=== PATIENT | male | born 1935 | race Caucasian/White ===

== ENCOUNTER 2020-04-04 19:52 | Inpatient (IN) | payer MEDICARE ==
[~2020-04-04 19:52] MED LIST: Iopamidol-370 76% 500 ML 1 ML ONE
--- NOTE | 2020-04-04 20:18 | CT ---
Head CT without contrast: 04/04/2020 COMPARISON: None HISTORY: Altered mental status, bradycardia, left-sided hemiplegia TECHNIQUE: Axial CT imaging at 2.5 mm intervals from vertex through skull base without contrast. Raza nal and sagittal reformatted imaging obtained. FINDINGS: There is atherosclerotic calcification involving the distal vertebral arteries and the cave rnous carotid arteries. There is hypodensity with loss of porter-white differentiation involving the insular cortex on the righ t as well as the lateral and anterior aspect of the right frontal lobe from the anterior cranial fossa through the vertex suggesting acute extensive right MCA infarction. Foci of loss of porter-white differentiation suspected within the temporal lobe on the right as well. No associated intracranial hemorrhage. There is a mild degree of midline shift from right to left at the level of the septum pellucidum susp ected, measuring in the 1-2 mm range. The visualized paranasal sinuses and mastoid air cells are well-aerated. There is no displaced calvar ial fracture. IMPRESSION: Findings suggesting extensive MCA infarction on the right. Recommend follow-up MRI. No ev idence for intracranial hemorrhage. Results called to Dr. Martinez 8:15 PM 04/04/2020
--- NOTE | 2020-04-04 20:56 | RAD ---
Portable frontal chest radiograph: 04/04/2020 COMPARISON: 08/10/2019 HISTORY: Altered mental status FINDINGS: There is atherosclerotic calcification of the aortic arch. No pneumothorax or pleural fluid is seen. There is no focal consolidation or alveolar edema. IMPRESSION: No acute findings.
[2020-04-04 21:19] LABS: INR-International Normal Ratio 1.1; PTT 27.1 sec (22.9-36.1); Prothrombin Time 14.2 sec (12.0-14.7)
[2020-04-04 21:36] LABS: #Lymphocytes 0.8 thou/uL (1.20-3.40); #Monocytes 0.6 thou/uL (0.11-0.59); #Neutrophils 5.9 thou/uL (1.40-6.50); %Basophils 0.1 % (0.0-1.0); %Eosinophils 0.3 % (0.0-10.0); %Lymphocytes 10.4 % (21.0-51.0); %Monocytes 7.8 % (0.0-10.0); %Neutrophils 81.4 % (42.0-75.0); Hemoglobin 12.3 g/dL (14.0-18.0); Mean Corpuscular HGB CONC 31.1 g/dL (32.0-36.0); Mean Corpuscular Volume 90.3 fL (78.0-98.0); Mean Platelet Volume 10.9 fL (7.4-10.4); Platelet Count 113 thou/uL (130-400); RBC Distribution Width 14.8 % (11.5-14.5); Red Blood Cell (RBC) Count 4.38 mill/uL (4.70-6.10); White Blood Cell (WBC) Count 7.2 thou/uL (4.8-10.8)
[2020-04-04 21:44] LABS: Bacteria/HPF None Seen HPF (None Seen); Bilirubin Negative (Negative); Blood, Urine 2+ (Negative); Clarity Turbid (Clear); Glucose, Urine (Dipstick) Normal (Negative); Ketone, Urine Trace mg/dL (Negative); Leukocyte Negative Leu/uL (Negative); Nitrite Negative (Negative); Protein, Urine (Dipstick) 10 mg/dL (Neg-Trace); RBC/HPF Greater than 50 HPF (0-3); Specific Gravity, Urine 1.018 (1.002-1.036); Squamous Epithelial 0-3 HPF (0-3); Urobilinogen Normal mg/dL (Less than 2); WBC/HPF 0-3 HPF (0-3)
--- NOTE | 2020-04-04 21:46 | CT ---
CT ANGIOGRAM HEAD WITH CONTRAST CT ANGIOGRAM NECK WITH CONTRAST: History: Level II stroke Comparison: CT brain without contrast, same day. FINDINGS: CT angiogram of the head and neck performed after the intravenous administration of contrast. 3D rend ering provided. Lung apices are relatively clear. Mild atherosclerotic plaque of the aorta. High grade degenerative disc space disease throughout the cervical spine. Extensive debris throughout the trachea. Vessels: The right vertebral artery is patent and dominant. High grade narrowing due to disc osteophy te complex causing extrinsic mass effect at C5-6, 80-90% narrowing, for the length of 3 mm. The origi n of the intradural right vertebral artery has 50-60% narrowing for 2 mm. The left vertebral artery origin is small as well as the cervical left vertebral artery. The intradur al left vertebral artery is occluded. There is also an occlusion at the C1 level. Right common carotid artery origin is patent. 70% narrowing of the origin of the right internal carot id artery per NASCET criteria for a length of 5 mm. Focal complete occlusion of the right T2 internal artery for a length of 3 mm. There is occlusion of the right N2 branch ---- axial T11 with segmental distribution of infarct along the right frontal parietal and temporal lobes. The right M1 segment is patent. The left middle cerebral artery is patent. Anterior cerebral arteries are patent. The posterior cerebral arteries are patent. IMPRESSION: 1. Single branch right M2 segment occlusion with absent flow in the segmental right M3 and M4 br anch with acute infarction involving the mid right MCA territory. 2. 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 3. High grade narrowing of the right vertebral artery at C5-6 due to a disc osteophyte complex a s described. 4. 70-80% narrowing of the origin of the right internal carotid artery from a length of 3-4 mm. 5. 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 6. High grade petrous narrowing right internal carotid artery. 7. Patent superior sagittal sinus and transverse sinuses. Dr. Martinez notified of findings via telephone 8:38 pm. POS: HOME
[2020-04-04] MEDS ORDERED: Aspirin 300 MG Suppository ONE (21:54)
[2020-04-04 21:59] LABS: ALT (SGPT) Less than 7 U/L (8-55); Albumin 3.9 g/dL (3.4-4.8); Alkaline Phosphatase 93 U/L (40-110); Anion Gap 19 mmol/L (10-20); BUN (Urea Nitrogen) 43 mg/dL (8.4-25.7); Bilirubin, Total 0.5 mg/dL (0.2-1.2); CK (CPK) 346 U/L (30-200); Calc. Creatinine Clearance 0 mL/min (70-130); Calcium 8.9 mg/dL (7.8-10.44); Carbon Dioxide 23 mmol/L (23-31); Chloride 100 mmol/L (98-107); Globulin 3.8 g/dL (2.4-3.5); Glucose 123 mg/dL (83-110); Lipase 25 U/L (8-78); Magnesium 2.3 mg/dL (1.6-2.6); Potassium 5.7 mmol/L (3.5-5.1); Protein, Total 7.7 g/dL (5.8-8.1); Sodium 136 mmol/L (136-145)
[2020-04-04 22:02] LABS: CKMB 6.2 ng/mL (0-6.6)
--- NOTE | 2020-04-04 22:12 | PDOC.HHP ---
Hospitalist HPI Left-sided weakness History of Present Illness: 84-year-old male with no known past medical history who was reportedly found by EMS after being called for by neighbors who has not seen the patient for the last 3 days. On arrival of EMS and upon the patient's daughter patient was found slumped to the side. He was brought to the ED. And noted with complete weakness of the left side patient was arousable but incoherent. NIH stroke scale was 24 score at presentation and remain unchanged. Patient head CT shows evidence of extensive MCA infarct with 2 mm midline shift. CTA of the [place] shows multiple segmental branches occlusion. Patient is being admitted for acute CVA. Patient is unable to give history due to incoherent status. Attempt made to reach next of kin at number provided but no response. Past History: PMHx: Unknown PSHx: Unknown FHx: Unknown Social: Unknown Hospitalist HPI ROS ROS unobtainable: due to mental status Hospitalist Exam Vitals: 1 3383 pulse of 86 respirate of 18 General - other findings: Elderly male average build open eyes,left facial droop Eye: PERRL, anicteric sclera ENT: normocephalic atraumatic, dry oral mucosa Neck: supple, symmetric, no carotid bruit Heart: RRR, no murmur Respiratory: CTAB, no wheezes Gastrointestinal: soft, non-tender, non-distended, no guarding, no rigidity Extremities: no cyanosis, no clubbing Skin: no rashes Skin - other findings: Few scabs Neurological: hemiplegia (power 0/5 -LUE/LLE 4/5-RUE/RLE, incoherent , simple commands +), speech deficit Psychiatric: lethargic (incoherent) Hospitalist Results Result Diagrams: 04/04/20 20:41 04/04/20 20:41 Lab results: Laboratory Last Values WBC 7.2 thou/uL (4.8-10.8) 04/04/20 20:41 RBC 4.38 mill/uL (4.70-6.10) L 04/04/20 20:41 Hgb 12.3 g/dL (14.0-18.0) L 04/04/20 20:41 Hct 39.5 % (42.0-52.0) L 04/04/20 20:41 MCV 90.3 fL (78.0-98.0) 04/04/20 20:41 MCH 28.0 pg (27.0-31.0) 04/04/20 20: MCHC 31.1 g/dL (32.0-36.0) L 04/04/20 20:41 RDW 14.8 % (11.5-14.5) H 04/04/20 20:41 Plt Count 113 thou/uL (130-400) L 04/04/20 20:41 MPV 10.9 fL (7.4-10.4) H 04/04/20 20:41 Neutrophils % 81.4 % (42.0-75.0) H 04/04/20 20:41 Neutrophils % (Manual) Not Reportable 04/04/20 20: Lymphocytes % 10.4 % (21.0-51.0) L 04/04/20 20:41 Monocytes % 7.8 % (0.0-10.0) 04/04/20 20:41 Eosinophils % 0.3 % (0.0-10.0) 04/04/20 20: Basophils % 0.1 % (0.0-1.0) 04/04/20 20: Neutrophils # 5.9 thou/uL (1.40-6.50) 04/04/20 20: Lymphocytes # 0.8 thou/uL (1.20-3.40) L 04/04/20 20:41 Monocytes # 0.6 thou/uL (0.11-0.59) H 04/04/20 20:41 Eosinophils # 0.0 thou/uL (0.0-0.7) 04/04/20 20:41 Basophils # 0.0 thou/uL (0.0-0.2) 04/04/20 20:41 PT 14.2 sec (12.0-14.7) 04/04/20 20: INR 1.1 04/04/20 20:41 APTT 27.1 sec (22.9-36.1) 04/04/20 20:41 Sodium 136 mmol/L (136-145) 04/04/20 20:41 Potassium 5.7 mmol/L (3.5-5.1) H 04/04/20 20:41 Chloride 100 mmol/L (98-107) 04/04/20 20:41 Carbon Dioxide 23 mmol/L (23-31) 04/04/20 20:41 Anion Gap 19 mmol/L (10-20) 04/04/20 20:41 BUN 43 mg/dL (8.4-25.7) H 04/04/20 20:41 Creatinine 1.50 mg/dL (0.7-1.3) H 04/04/20 20:41 Estimated GFR (MDRD) 45 04/04/20 20:41 Glucose 123 mg/dL (83-110) H 04/04/20 20:41 POC Glucose 99 mg/dL (70-100) 04/04/20 20:27 Calcium 8.9 mg/dL (7.8-10.44) 04/04/20 20:41 Magnesium 2.3 mg/dL (1.6-2.6) 04/04/20 20:41 Total Bilirubin 0.5 mg/dL (0.2-1.2) 04/04/20 20:41 ALT Less than 7 U/L (8-55) L 04/04/20 20:41 Alkaline Phosphatase 93 U/L (40-110) 04/04/20 20:41 Creatine Kinase 346 U/L (30-200) H 04/04/20 20:41 CK-MB (CK-2) 6.2 ng/mL (0-6.6) 04/04/20 20:41 Troponin I 1.473 ng/mL (< 0.028) H* 04/04/20 20:41 Serum Total Protein 7.7 g/dL (5.8-8.1) 04/04/20 20:41 Albumin 3.9 g/dL (3.4-4.8) 04/04/20 20:41 Globulin 3.8 g/dL (2.4-3.5) H 04/04/20 20:41 Albumin/Globulin Ratio 1.0 g/dL (1.2-2.2) L 04/04/20 20:41 Lipase 25 U/L (8-78) 04/04/20 20:41 Urine Color Yellow (Yellow) 04/04/20 21:30 Urine Clarity Turbid (Clear) A 04/04/20 21:30 Urine pH 5.0 (5.0-9.0) 04/04/20 21:30 Ur Specific [place] 1.018 (1.002-1.036) 04/04/20 21: Urine Protein 10 mg/dL (Neg-Trace) 04/04/20 21: Urine Glucose (UA) Normal mg/dL (Negative) 04/04/20 21: Urine Ketones Trace mg/dL (Negative) A 04/04/20: Urine Blood 2+ (Negative) A 04/04/20: Urine Nitrite Negative (Negative) 04/04/20: Urine Bilirubin Negative (Negative) 04/04/20: Urine Urobilinogen Normal mg/dL (Less than 2) 04/04/20: Ur Leukocyte Esterase Negative Bill/uL (Negative) 04/04/20: Urine RBC Greater than 50 HPF (0-3) A 04/04/20: Urine WBC 0-3 HPF (0-3) 04/04/20 21: Ur Squamous Epith Cells 0-3 HPF (0-3) 04/04/20 21:30 Urine Bacteria None Seen HPF (None Seen) 04/04/20: Hyaline Casts 11-20 LPF (0-3) A 04/04/20 21:30 CT scan - head Additional Comments: Extensive areas of occlusion including M2/M3 and M4, right vertebral and internal artery occlusions on CTA [place] CT headextensive MCA infarct with 2 mm midline shift Hospitalist H&P A/P (1) Right-sided cerebrovascular accident (CVA) Code(s): I63.9 - CEREBRAL INFARCTION, UNSPECIFIED Status: Acute (2) BPH (benign prostatic hyperplasia) Code(s): N40.0 - BENIGN PROSTATIC HYPERPLASIA WITHOUT LOWER URINRY TRACT SYMP Status: Acute (3) Hyperkalemia Code(s): E87.5 - HYPERKALEMIA Status: Acute (4) ARF (acute renal failure) Status: Acute (5) Elevated troponin Code(s): R77.8 - OTHER SPECIFIED ABNORMALITIES OF PLASMA PROTEINS Status: Acute Plan: #Right CVAlikely monitor 48 hours -Unable to give TPA or neuro intervention -Extensive area of occlusion and infarct We will consult neurology We will consult PT and OT We will start patient with per rectal aspirin and Plavix We will do swallow eval in a.m. We will continue to attempt to reach family and discuss goals of care #Hypertensionresume Monitor blood pressure Allow for permissive hypertension #Hyperkalemiagiven difficulty with catheterization, possibility of BPH with lower urinary tract symptoms considered Obtain renal sonogram We will treat with potassium lowering cocktailper rectal Kayexalate/ins ulin/D50/calcium gluconate now Start D5 NS #Acute kidney injurymay be due to prerenal from recent CVA and dehydration Start IVF with D5 NS and follow Obtain renal sonogram #Advance directiveunable to obtain, follow after discussion with family #DVT prophylaxissubcutaneous Lovenox since no evidence of cerebral bleed now
[2020-04-04] MEDS ORDERED: Acetaminophen 650 MG Suppository PR PRN (22:20)
[2020-04-04] MEDS ORDERED: hydrALAZINE 20 MG/ML VIAL SLOW IVP PRN (22:20)
[2020-04-04] MEDS ORDERED: Bisacodyl 10 MG SUPP PR PRN (22:20)
[2020-04-04] MEDS ORDERED: Ondansetron PF 4 MG/2 ML Vial IVP PRN (22:20)
[2020-04-04 22:54] LABS: AST (SGOT) 32 U/L (5-34)
[2020-04-04] MEDS ORDERED: Atropine Sulfate 1 mg/10 ml Syringe ONE ×2 (22:57→22:58)
[2020-04-04] MEDS ORDERED: Calcium Gluconate 4.6 MEQ in Sodium Chloride 0.9% 100 ML IVPB SCH (23:00)
[2020-04-05] MEDS: Dextrose 5 % And 0.9 % NaCl 1,000 ML IV SCH ×2 (01:16→17:54)
[2020-04-05 01:31] LABS: Critical Call Chem Troponin I RESULT DECREASING; Troponin I 1.346 ng/mL (< 0.028)
[2020-04-05 03:25] VITALS: BMI 19.2
[2020-04-05 05:24] LABS: Band 8 % (5-11); Eosinophils 1 % (0-10); Hemoglobin 12.4 g/dL (14.0-18.0); Lymphocytes 18 % (21-51); MDiff Complete? YES; Mean Corpuscular HGB CONC 30.6 g/dL (32.0-36.0); Mean Corpuscular Hemoglobin 27.3 pg (27.0-31.0); Mean Corpuscular Volume 89.2 fL (78.0-98.0); Mean Platelet Volume 9.7 fL (7.4-10.4); Monocytes 8 % (0-10); Neutrophil 65 % (42-75); Platelet Count 125 thou/uL (130-400); Platelet Morphology Comment Appears Decreased; RBC Distribution Width 14.8 % (11.5-14.5); Red Blood Cell (RBC) Count 4.54 mill/uL (4.70-6.10); White Blood Cell (WBC) Count 8.5 thou/uL (4.8-10.8)
[2020-04-05 05:35] LABS: Anion Gap 15 mmol/L (10-20); BUN (Urea Nitrogen) 36 mg/dL (8.4-25.7); Calc. Creatinine Clearance 33 mL/min (70-130); Calcium 9.1 mg/dL (7.8-10.44); Carbon Dioxide 20 mmol/L (23-31); Chloride 107 mmol/L (98-107); Cholesterol 211 mg/dl (< 200 Desired); Glucose 139 mg/dL (83-110); HDL Cholesterol 42 mg/dL (>60 Neg Risk); LDL Cholesterol, Calculated 156 mg/dL; Potassium 4.4 mmol/L (3.5-5.1); Sodium 138 mmol/L (136-145); Triglycerides 67 mg/dL (Less than 150)
[2020-04-05 05:54] LABS: Critical Call Chem Troponin I RESULT DECREASING; Troponin I 0.975 ng/mL (< 0.028)
[2020-04-05 07:02] LABS: SARS-CoV-2 PCR by NAA Not Detected (NotDetected)
[2020-04-05] MEDS: Aspirin 300 MG Suppository PR SCH (08:18)
[2020-04-05] MEDS: Famotidine/PF 20 mg/2ml Vial SLOW IVP SCH (08:18)
[2020-04-05] MEDS: Enoxaparin Sodium 30 MG/0.3 ML SYRINGE SC SCH (08:19)
[2020-04-05] MEDS ORDERED: FLU VACC QS2020-21(65YR UP)/PF 240 MCG/0.7 ML SYRINGE IM ONE (09:00)
--- NOTE | 2020-04-05 10:01 | PDOC.HOSPP ---
- Subjective Encounter Date: 04/05/20 - Objective Vital Signs & Weight: Vital Signs (12 hours) Temp Pulse Resp BP Pulse Ox 04/05/20 07:52 97.8 F 63 18 145/75 H 97 04/05/20 04:00 97.8 F 73 16 167/83 H 99 04/05/20 02:51 100 04/04/20 23:45 98.3 F 69 20 155/77 H 100 04/04/20 22:20 99 Weight Admit Weight 115 lb 11.2 oz Weight 115 lb 11.2 oz Result Diagrams: 04/05/20 05:03 04/05/20 05:03 Additional Labs: Accuchecks 04/05/20 04/05/20 04/04/20 05:27 00:57 20:27 POC Glucose 130 H 104 H 99 Radiology Reviewed by me: Yes Hospitalist ROS - Medication Medications: Active Medications Generic Name Dose Route Start Last Admin Trade Name Freq PRN Reason Stop Dose Admin Aspirin 300 mg 04/05/20 09:00 04/05/20 08:18 Aspirin 300 Mg Suppository OH 300 mg DAILY INDERJIT Administration Enoxaparin Sodium 30 mg 04/05/20 09:00 04/05/20 08:19 Enoxaparin Sodium 30 Mg/0.3 Ml Syringe SC 30 mg 0900 INDERJIT Administration Famotidine 20 mg 04/05/20 09:00 04/05/20 08:18 Famotidine/Pf 20 Mg/2ml Vial SLOW IVP 20 mg DAILY INDERJIT Administration Dextrose/Sodium Chloride 1,000 mls @ 100 mls/hr 04/04/20 22:30 04/05/20 01:16 D5 0.9% Ns IV 1,000 mls .Q10H INDERJIT Administration Hospitalist Exam Vitals: Vital Signs (12 hours) Temp Pulse Resp BP Pulse Ox 04/05/20 07:52 97.8 F 63 18 145/75 H 97 04/05/20 04:00 97.8 F 73 16 167/83 H 99 04/05/20 02:51 100 04/04/20 23:45 98.3 F 69 20 155/77 H 100 04/04/20 22:20 99 Weight Admit Weight 115 lb 11.2 oz Weight 115 lb 11.2 oz General Appearance: ill appearing Eye: anicteric sclera ENT: normocephalic atraumatic
--- NOTE | 2020-04-05 10:51 | PRG ---
DATE OF SERVICE: 04/05/2020 CONSULTATIONS ON THE CASE: Neurology. SUBJECTIVE: The patient was seen and evaluated at bedside. This is an 84-year-old male gentleman, admitted for extensive MCA infarct with 2-mm midline shift. MEDICATIONS: 1. Aspirin 300 mg daily. 2. Atorvastatin 40 mg daily started on 04/05/2020. OBJECTIVE: VITAL SIGNS: Has a temperature of 97.8 degrees Fahrenheit, pulse of 73 per minute, respiratory rate of 16 per minute, saturation 99% on room air, and has a blood pressure of 145/75 mmHg. GENERAL: He has an airway, which is clear. HEENT: Atraumatic, normocephalic. NECK: Supple. No bruit. No lymphadenopathy. CVS: S1 and S2. Normal sinus rhythm. CHEST: Bilateral air entry present. No rhonchi. No wheeze. ABDOMEN: Soft, nontender. Bowel sounds are present. No guarding. No rigidity. EXTREMITIES: No cyanosis. No clubbing. No edema. SKIN: No rashes. Dry. NEUROLOGIC: The patient is hemiplegic with speech deficits. PSYCHIATRIC: Lethargic and incoherent. DIAGNOSTICS: WBC 8.4, hemoglobin 12.4, hematocrit 40.5, and platelets are 125. INR is 1.1. Sodium 138, potassium 4.4, chloride 107, carbon dioxide 20, BUN 36, and creatinine 1.24. Troponin 1.473 and 1.346 and 0.975. Cholesterol is 211. Urinalysis has been reviewed. COVID-19 rapid negative. MRI of the brain has been done, awaiting official report. ASSESSMENT: 1. Right-sided cerebrovascular accident with middle cerebral artery territory stroke and 2-mm midline shift. Neurology on consult. 2. Benign prostatic hypertrophy. 3. Hyperkalemia, treated. 4. Acute renal failure, likely prerenal in nature. 5. Elevated troponin, likely type 2 non-ST elevation myocardial infarction due to demand ischemia. No further interventions to be done at this point of time. PLAN: Discussed in detail of the diagnosis, treatment, and followup with the patient as well as the patient's care team. We will continue the patient on antiplatelets, statins. Continue PT, OT, and speech and swallow evaluations at this point of time. Keep the permissive blood pressure optimized. Discharge planning will depend on further hospital course and Neurology recommendations. Continue DVT and GI prophylaxis. Job ID: [id number]
--- NOTE | 2020-04-05 11:26 | MRI ---
MRI BRAIN WITHOUT CONTRAST: INDICATION: Stroke. COMPARISON: Correlation is made to Ct head and CTA head 04/04/2020. That exam revealed cytotoxic edema in the righ t cerebral hemisphere consistent with large right MCA distribution infarct. FINDINGS: MRI confirms the large infarct involving the right MCA distribution. There is a large area of restri cted diffusion in the right cerebral hemisphere involving right frontal, parietal, and temporal lobe cortex. Moderate chronic ischemic white matter changes are seen in the deep white matter of both cerebral hem ispheres. Ventricles remain midline with no significant mass effect. Intracranial internal carotid arteries and proximal cerebral arteries show flow voids. See recent CT A head study. IMPRESSION: A large right middle cerebral artery distribution infarct with large area of restricted diffusion inv olving the right cerebral hemisphere with involvement of right frontal, parietal, and temporal lobes. POS: AGW
--- NOTE | 2020-04-05 13:01 | CON ---
NEUROLOGY CONSULTATION DATE OF CONSULTATION: 04/05/2020 REASON FOR CONSULTATION: Altered mental status/left-sided weakness. HISTORY OF PRESENT ILLNESS: Mr. Jorge Long is an 84-year-old male with no past medical history, presented to the emergency room because his neighbors have not seen him for the last 3 days, so they called the EMS and EMS arrived, he was found slumped to the side, so he was brought to the emergency room and found to have a complete hemiplegia of the left side of the body and was incoherent. NIH Stroke Scale was 24 at presentation, which remained unchanged. Head CT showed evidence of extensive right middle cerebral artery infarct with 2 midline shift. CTA of the [place] showed multiple segmental branches occlusion. The patient is admitted for management of CVA. REVIEW OF SYSTEMS: Unobtainable due to the patient's mental status. PAST MEDICAL HISTORY: Not significant. PAST SURGICAL HISTORY: No significant past surgical history. FAMILY HISTORY: Stroke. SOCIAL HISTORY: Patient lives alone at home and is functionally independent. Allergies: No known drug allergies PHYSICAL EXAMINATION: VITAL SIGNS: Blood pressure 133/83, pulse 86, respiratory rate 18. GENERAL: The patient is alert and oriented to person only. CVS: Regular rate and rhythm. CHEST: Clear. ABDOMEN: Soft. NECK: Supple. NEUROLOGIC: Mental status, the patient is awake, alert and is oriented to name only. He does not follow commands or maintain eye contact. Cranial nerves 2 through 12 intact, except 7, left facial droop. Motor, muscle tone and bulk are normal. Strength, left hemiplegia, left upper extremity 0/5, left lower extremity 1/5. Spontaneously moving right upper and lower extremity. Speech deficit. Gait deferred due to patient's safety reason. DATA REVIEWED: I reviewed the labs and head CT, which showed right middle cerebral artery infarct with 2 mm midline shift. Lab results: Laboratory Last Values WBC 7.2 thou/uL (4.8-10.8) 04/04/20 20:41 RBC 4.38 mill/uL (4.70-6.10) L 04/04/20 20:41 Hgb 12.3 g/dL (14.0-18.0) L 04/04/20 20:41 Hct 39.5 % (42.0-52.0) L 04/04/20 20:41 MCV 90.3 fL (78.0-98.0) 04/04/20 20:41 MCH 28.0 pg (27.0-31.0) 04/04/20 20: MCHC 31.1 g/dL (32.0-36.0) L 04/04/20 20:41 RDW 14.8 % (11.5-14.5) H 04/04/20 20:41 Plt Count 113 thou/uL (130-400) L 04/04/20 20:41 MPV 10.9 fL (7.4-10.4) H 04/04/20 20:41 Neutrophils % 81.4 % (42.0-75.0) H 04/04/20 20:41 Neutrophils % (Manual) Not Reportable 04/04/20 20: Lymphocytes % 10.4 % (21.0-51.0) L 04/04/20 20:41 Monocytes % 7.8 % (0.0-10.0) 04/04/20 20:41 Eosinophils % 0.3 % (0.0-10.0) 04/04/20 20:41 Basophils % 0.1 % (0.0-1.0) 04/04/20 20:41 Neutrophils # 5.9 thou/uL (1.40-6.50) 04/04/20 20:41 Lymphocytes # 0.8 thou/uL (1.20-3.40) L 04/04/20 20:41 Monocytes # 0.6 thou/uL (0.11-0.59) H 04/04/20 20:41 Eosinophils # 0.0 thou/uL (0.0-0.7) 04/04/20 20:41 Basophils # 0.0 thou/uL (0.0-0.2) 04/04/20 20:41 PT 14.2 sec (12.0-14.7) 04/04/20 20:41 INR 1.1 04/04/20 20:41 APTT 27.1 sec (22.9-36.1) 04/04/20 20:41 Sodium 136 mmol/L (136-145) 04/04/20 20:41 Potassium 5.7 mmol/L (3.5-5.1) H 04/04/20 20:41 Chloride 100 mmol/L (98-107) 04/04/20 20:41 Carbon Dioxide 23 mmol/L (23-31) 04/04/20 20:41 Anion Gap 19 mmol/L (10-20) 04/04/20 20:41 BUN 43 mg/dL (8.4-25.7) H 04/04/20 20:41 Creatinine 1.50 mg/dL (0.7-1.3) H 04/04/20 20:41 Estimated GFR (MDRD) 45 04/04/20 20:41 Glucose 123 mg/dL (83-110) H 04/04/20 20:41 POC Glucose 99 mg/dL (70-100) 04/04/20 20:27 Calcium 8.9 mg/dL (7.8-10.44) 04/04/20 20:41 Magnesium 2.3 mg/dL (1.6-2.6) 04/04/20 20:41 Total Bilirubin 0.5 mg/dL (0.2-1.2) 04/04/20 20:41 ALT Less than 7 U/L (8-55) L 04/04/20 20:41 Alkaline Phosphatase 93 U/L (40-110) 04/04/20 20:41 Creatine Kinase 346 U/L (30-200) H 04/04/20 20:41 CK-MB (CK-2) 6.2 ng/mL (0-6.6) 04/04/20 20:41 Troponin I 1.473 ng/mL (< 0.028) H* 04/04/20 20:41 Serum Total Protein 7.7 g/dL (5.8-8.1) 04/04/20 20:41 Albumin 3.9 g/dL (3.4-4.8) 04/04/20 20:41 Globulin 3.8 g/dL (2.4-3.5) H 04/04/20 20:41 Albumin/Globulin Ratio 1.0 g/dL (1.2-2.2) L 04/04/20 20:41 Lipase 25 U/L (8-78) 04/04/20 20:41 Urine Color Yellow (Yellow) 04/04/20 21:30 Urine Clarity Turbid (Clear) A 04/04/20 21:30 Urine pH 5.0 (5.0-9.0) 04/04/20 21:30 Ur Specific [place] 1.018 (1.002-1.036) 04/04/20 21:30 Urine Protein 10 mg/dL (Neg-Trace) 04/04/20 21:30 Urine Glucose (UA) Normal mg/dL (Negative) 04/04/20 21:30 Urine Ketones Trace mg/dL (Negative) A 04/04/20 21:30 Urine Blood 2+ (Negative) A 04/04/20 21:30 Urine Nitrite Negative (Negative) 04/04/20 21:30 Urine Bilirubin Negative (Negative) 04/04/20 21:30 Urine Urobilinogen Normal mg/dL (Less than 2) 04/04/20 21:30 Ur Leukocyte Esterase Negative Bill/uL (Negative) 04/04/20 21:30 Urine RBC Greater than 50 HPF (0-3) A 04/04/20 21:30 Urine WBC 0-3 HPF (0-3) 04/04/20 21:30 Ur Squamous Epith Cells 0-3 HPF (0-3) 04/04/20 21:30 Urine Bacteria None Seen HPF (None Seen) 04/04/20 21:30 Hyaline Casts 11-20 LPF (0-3) A 04/04/20 21:30 CT scan - head Additional Comments: Extensive areas of occlusion including M2/M3 and M4, right vertebral and internal artery occlusions on CTA [place] CT headextensive MCA infarct with 2 mm midline shift ASSESSMENT AND PLAN: (1) Right-sided cerebrovascular accident (CVA) Code(s): I63.9 - CEREBRAL INFARCTION, UNSPECIFIED Status: Acute (2) BPH (benign prostatic hyperplasia) Code(s): N40.0 - BENIGN PROSTATIC HYPERPLASIA WITHOUT LOWER URINRY TRACT SYMP Status: Acute (3) Hyperkalemia Code(s): E87.5 - HYPERKALEMIA Status: Acute (4) ARF (acute renal failure) Status: Acute (5) Elevated troponin Code(s): R77.8 - OTHER SPECIFIED ABNORMALITIES OF PLASMA PROTEINS Status: Acute Mr. Jorge Long is an 84-year-old male who was admitted after being found down by the EMS with left-sided weakness. Head CT positive for acute right middle cerebral artery infarct with 2 mm shift. CTA of the head showed extensive areas of occlusion including M2/M3 and M4 and right vertebral and internal artery occlusion. Carotid artery occlusions. Neuro checks every 2 hours. Continue permissive control of blood pressure at this time. Strict control of blood glucose. Telemetry to rule out arrhythmias. 2D echo to evaluate for left ventricular ejection fraction,. PT/OT/Speech. Continue medical management per primary team. Plan discussed in detail with the patient's daughter at bedside and the nursing staff. We will continue aspirin, high-intensity statin for secondary stroke prevention. Check hemoglobin A1c, fasting lipid panel, and TSH. DVT prophylaxis. Case management consult regarding discharge planning. We will continue to follow. Discussed in detail with the patient daughter at bedside and also the nursing staff. Thank you for the consult. Job ID: [id number] GELACIO
--- NOTE | 2020-04-05 14:09 | HP ---
HISTORY OF PRESENT ILLNESS: The patient is an unfortunate 84-year-old gentleman, who presented with acute altered mental status and left-sided weakness. The patient has previous history of peripheral vascular disease. According to his daughter, he has had stents placed into his peripheral arteries. The patient has no previous cardiac history. The patient was in his usual state of health when he suddenly lost consciousness and was unable to move his left side. The patient is minimally responsive. PAST MEDICAL HISTORY: 1. Hypertension. 2. Peripheral vascular disease. 3. Congestive heart failure. 4. Dyslipidemia. PAST SURGICAL HISTORY: None. SOCIAL HISTORY: Nonsmoker. Past history of ethanol abuse. FAMILY HISTORY: No strong family history of heart disease. MEDICATIONS: Aspirin and Lipitor. PHYSICAL EXAMINATION: GENERAL: This is a confused gentleman, in no acute distress. VITAL SIGNS: Blood pressure 160/73. NECK: No jugular venous distention. LUNGS: Clear to auscultation. HEART: Regular rate and rhythm. Normal S1 and S2. ABDOMEN: Nondistended. EXTREMITIES: Showed no edema. VASCULAR: Radial pulses are 2+. NEUROLOGIC: Left hemiparesis. LABORATORY RESULTS: Sodium 138, potassium 4.4, chloride 107, bicarbonate 20, BUN 36, creatinine 1.24, and glucose 139. Troponin of 1.3 and then 0.975. Cholesterol was 211 with an LDL of 156. EKG sinus bradycardia with a left bundle-branch block. IMPRESSION: 1. Cerebrovascular accident. 2. Elevated troponin level, most likely secondary to demand ischemia. 3. Left bundle-branch block. 4. Dyslipidemia. 5. Hypertension. 6. Peripheral vascular disease. 7. Congestive heart failure. PLAN: This is an unfortunate gentleman, who has suffered a large cerebrovascular accident. From a cardiac standpoint, he is on aspirin therapy. We will obtain an echocardiogram to evaluate left ventricular function. The patient's elevated troponin level is most likely secondary to demand ischemia. We will follow this patient with you through his hospitalization. Job ID: [id number] MTDD
[2020-04-05] MEDS: Insulin Regular 300 UNITS/3 ML VIAL SC PRN (17:50)
--- NOTE | 2020-04-05 19:55 | CON ---
DATE OF CONSULTATION: REQUESTING PHYSICIAN: Dr. Schroeder. REASON FOR CONSULTATION: Acute kidney injury. IMPRESSION: Acute kidney injury, this is likely prerenal. PLAN: Hemodynamic support with potential renal supportive measures. HISTORY OF PRESENT ILLNESS: History is that of 84-year-old gentleman, presented with left-sided weakness. The patient was found by the EMS to be slumped onto the side, presented to the emergency department and noted with a creatinine elevated at 1.5. The patient got diagnosed with CT of the [place] that showed multiple segmental branches of occlusion. The patient got admitted with acute CVA. Due to the elevated creatinine, decision was taken to involve Renal in the management of this case. PAST MEDICAL HISTORY: Could not be obtained from this patient. SOCIAL HISTORY: Could not be obtained. FAMILY HISTORY: Could not be obtained. REVIEW OF SYSTEMS: Could not be obtained. PHYSICAL EXAMINATION: VITAL SIGNS: The patient noted with the following vital signs; afebrile, temperature 97.5, pulse 67, respiratory rate of 18, O2 saturations of 99%, blood pressure 160/73. HEENT: Unremarkable. CARDIOVASCULAR SYSTEM: First and second heart sounds were heard. RESPIRATORY SYSTEM: Clear to auscultation. DIGESTIVE SYSTEM: Revealed a benign abdomen. EXTREMITIES: No peripheral edema. NEUROLOGIC: Revealed left-sided weakness. SUMMARY: An 84-year-old gentleman who was brought in here with features of acute cerebrovascular accident and noted to have elevated creatinine, likely prerenal in the context of poor p.o. intake. Thank you for this consultation. We will follow with you. Job ID: [id number]
[2020-04-05] MEDS: Atorvastatin Calcium 40 MG TAB PO SCH (21:37)
[2020-04-06] MEDS: Insulin Regular 300 UNITS/3 ML VIAL SC PRN ×2 (00:59→06:00)
[2020-04-06] MEDS: Dextrose 5 % And 0.9 % NaCl 1,000 ML IV SCH ×2 (05:12→11:51)
[2020-04-06] MEDS: Aspirin 300 MG Suppository PR SCH (08:32)
[2020-04-06] MEDS: Famotidine/PF 20 mg/2ml Vial SLOW IVP SCH (08:32)
[2020-04-06] MEDS: Enoxaparin Sodium 30 MG/0.3 ML SYRINGE SC SCH (08:32)
--- NOTE | 2020-04-06 08:33 | PDOC.NEUPN ---
- Subjective Encounter Date: 04/06/20 Subjective: Mr. Orourke seen somnolent this morning. - Objective Vital Signs & Weight: Vital Signs (12 hours) Temp Pulse Resp BP Pulse Ox 04/06/20 07:44 98.5 F 74 18 178/83 H 93 L 04/06/20 03:50 98.6 F 85 16 180/88 H 97 04/06/20 01:28 98.6 F 04/06/20 00:58 102 F H 04/06/20 00:00 102.0 F H 88 20 182/80 H 99 Weight Admit Weight 115 lb 11.2 oz Weight 115 lb 11.2 oz I&O: 04/05/20 04/06/20 04/07/20 06:59 06:59 06:59 Intake Total 793 Balance 793 Result Diagrams: 04/05/20 05:03 04/05/20 05:03 Additional Labs: Accuchecks 04/06/20 04/05/20 04/05/20 05:50 23:34 17:12 POC Glucose 170 H 202 H 168 H 04/05/20 10:35 POC Glucose 122 H Radiology Reviewed by me: Yes EKG Reviewed by me: Yes ROS - Review of Systems ROS unobtainable: due to mental status - Medication Medications: Active Medications Generic Name Dose Route Start Last Admin Trade Name Freq PRN Reason Stop Dose Admin Acetaminophen 650 mg 04/04/20 22:20 04/06/20 00:58 Acetaminophen 650 Mg Suppository NC 650 mg Q4H PRN Administration Headache/Fever/Mild Pain (1-3) Aspirin 300 mg 04/05/20 09:00 04/05/20 08:18 Aspirin 300 Mg Suppository NC 300 mg DAILY INDERJIT Administration Atorvastatin Calcium 40 mg 04/05/20 21:00 04/05/20 21:37 Atorvastatin Calcium 40 Mg Tab PO Not Given HS INDERJIT Enoxaparin Sodium 30 mg 04/05/20 09:00 04/05/20 08:19 Enoxaparin Sodium 30 Mg/0.3 Ml Syringe SC 30 mg 0900 INDERJIT Administration Famotidine 20 mg 04/05/20 09:00 04/05/20 08:18 Famotidine/Pf 20 Mg/2ml Vial SLOW IVP 20 mg DAILY INDERJIT Administration Dextrose/Sodium Chloride 1,000 mls @ 100 mls/hr 04/04/20 22:30 04/06/20 05:12 D5 0.9% Ns IV 1,000 mls .Q10H INDERJIT Administration Insulin Human Regular 0 units 04/04/20 22:20 04/06/20 06:00 Insulin Regular 300 Units/3 Ml Vial SC 2 unit .MODERATE SLIDING SC PRN Administration Moderate Correctional Scale - Exam General Appearance: NAD Eye: PERRL ENT: normocephalic atraumatic Neck: supple Respiratory: CTAB Cardiovascular: no murmur Gastrointestinal: soft Extremities: no cyanosis Skin: normal turgor Neurological: no new deficit, facial droop, hemiplegia, speech deficit Musculoskeletal: normal tone, no muscle wasting PSYCH: somnolent, lethargic Results - Labs Result Diagrams: 04/05/20 05:03 04/05/20 05:03 Lab results: WBC 8.5 thou/uL (4.8-10.8) 04/05/20 05:03 Hgb 12.4 g/dL (14.0-18.0) L 04/05/20 05:03 Hct 40.5 % (42.0-52.0) L 04/05/20 05:03 MCV 89.2 fL (78.0-98.0) 04/05/20 05:03 Plt Count 125 thou/uL (130-400) L 04/05/20 05:03 Neutrophils % 81.4 % (42.0-75.0) H 04/04/20 20:41 Band Neuts % (Manual) 8 % (5-11) 04/05/20 05:03 Sodium 138 mmol/L (136-145) 04/05/20 05:03 Potassium 4.4 mmol/L (3.5-5.1) 04/05/20 05:03 Chloride 107 mmol/L (98-107) 04/05/20 05:03 Carbon Dioxide 20 mmol/L (23-31) L 04/05/20 05:03 BUN 36 mg/dL (8.4-25.7) H 04/05/20 05:03 Creatinine 1.24 mg/dL (0.7-1.3) 04/05/20 05:03 Glucose 139 mg/dL (83-110) H 04/05/20 05:03 Calcium 9.1 mg/dL (7.8-10.44) 04/05/20 05:03 Total Bilirubin 0.5 mg/dL (0.2-1.2) 04/04/20 20:41 AST 32 U/L (5-34) 04/04/20 20:41 ALT Less than 7 U/L (8-55) L 04/04/20 20:41 Alkaline Phosphatase 93 U/L (40-110) 04/04/20 20:41 Creatine Kinase 346 U/L (30-200) H 04/04/20 20:41 CK-MB (CK-2) 6.2 ng/mL (0-6.6) 04/04/20 20:41 Troponin I 0.975 ng/mL (< 0.028) H* 04/05/20 05:03 Serum Total Protein 7.7 g/dL (5.8-8.1) 04/04/20 20:41 Albumin 3.9 g/dL (3.4-4.8) 04/04/20 20:41 Lipase 25 U/L (8-78) 04/04/20 20:41 Urine Ketones Trace mg/dL (Negative) A 04/04/20 21:30 Urine Blood 2+ (Negative) A 04/04/20 21:30 Urine Nitrite Negative (Negative) 04/04/20 21:30 Ur Leukocyte Esterase Negative Bill/uL (Negative) 04/04/20 21:30 Urine RBC Greater than 50 HPF (0-3) A 04/04/20 21:30 Urine WBC 0-3 HPF (0-3) 04/04/20 21:30 Ur Squamous Epith Cells 0-3 HPF (0-3) 04/04/20 21:30 Urine Bacteria None Seen HPF (None Seen) 04/04/20 21:30 - Radiology Interpretation MRI - head Additional Comment: MRI BRAIN positive for acute infarction. PN A/P (1) Acute CVA (cerebrovascular accident) Code(s): I63.9 - CEREBRAL INFARCTION, UNSPECIFIED Status: Acute (2) ARF (acute renal failure) Status: Acute (3) BPH (benign prostatic hyperplasia) Code(s): N40.0 - BENIGN PROSTATIC HYPERPLASIA WITHOUT LOWER URINRY TRACT SYMP Status: Acute (4) Elevated troponin Code(s): R77.8 - OTHER SPECIFIED ABNORMALITIES OF PLASMA PROTEINS Status: Acute (5) Hyperkalemia Code(s): E87.5 - HYPERKALEMIA Status: Acute (6) Right-sided cerebrovascular accident (CVA) Code(s): I63.9 - CEREBRAL INFARCTION, UNSPECIFIED Status: Acute - Plan Daily Plan: PT/OT, speech therapy, DVT proph w/SCDs 84 year old presented with left sided weakness and altered mental status. MRI brain positive for large vessel stroke. MRI of the brain reviewed which was positive for right middle cerebral artery infarction. CTA head and neck showed hemodynamically significant stenosis. 70-80% stenosis of Right ICA. Consider CV surgery input. 2D echo to evaluate for left ventricular ejection fraction is 15-20%. No thrombus or PFO. Cardiology is on board. EEG to evaluate for confusion is pending. Follow-up on the results Continue telemetry to rule out arrhythmias. Continue aspirin and statin for secondary stroke prevention. Neurochecks every 4 hours. Continue home medications. LU[facility]- Nephrology is on board. Monitor control of blood pressure and blood glucose. Continue medical management per primary team, cardiology and nephrology. PT/OT/speech Case management consult on board regarding discharge planning.
[2020-04-06] MEDS ORDERED: Metoprolol Tartrate 5 MG/5 ML VIAL IVP SCH (09:30)
--- NOTE | 2020-04-06 10:31 | PRG ---
DATE OF SERVICE: 04/06/2020 TIME OF SERVICE: 7:30 a.m. CONSULTATIONS ON THE CASE: 1. Vibha Padilla MD, Neurology. 2. Holland Farfan MD, Cardiology. 3. Ish Martinez MD, Nephrology. CONSULTS TO BE CALLED: Cardiovascular Surgery for carotid artery stenosis. SUBJECTIVE: The patient was seen and evaluated at bedside. This is an 84-year-old male gentleman with extensive MCA territory infarct with 2-mm midline shift. He is mostly noncommunicative, confused, and aphasic. OBJECTIVE: VITAL SIGNS: Temperature 98.5 degrees Fahrenheit, heart rate is 74 per minute, respiratory rate of 18 per minute, saturation of 93% on room air, has a blood pressure of 178/83 mmHg. Has an airway which is clear. HEENT: Atraumatic, normocephalic. NECK: Supple. No bruit. No lymphadenopathy. CV: S1, S2. Normal sinus rhythm noted. CHEST: Bilateral air entry present. No rhonchi. No wheeze. ABDOMEN: Soft, nontender. Bowel sounds are present. No guarding or rigidity. EXTREMITIES: No cyanosis, no clubbing, no edema. SKIN: Dry and no rashes. NEUROLOGIC: The patient is significantly hemiplegic with speech deficits. PSYCHIATRIC: The patient is lethargic and incoherent. MEDICATIONS: The patient is on; 1. Enalapril every 6 hours 1.25 mg. 2. Aspirin 300 mg daily. 3. Atorvastatin 40 mg daily. 4. Metoprolol tartrate 0.5 mg every 8 hours. DIAGNOSTICS: We will do a CBC, CMP tomorrow in a.m. Echocardiogram shows evidence of ejection fraction being at 15% to 20%. Normal size left atrium. Left ventricular size is mildly increased. ASSESSMENT: 1. Acute cerebrovascular accident with middle cerebral artery territory stroke and 2-mm midline shift. Neurology on consult. 2. Benign essential hypertension. At this point of time, the patient currently on enalapril as well as metoprolol tartrate. 3. Carotid artery stenosis. Cardiovascular surgical consultation has been advised at this point of time. Awaiting official report evaluation. 4. Severe systolic congestive heart failure, though not in exacerbation. Ejection fraction of 15% to 20%. Appreciate Cardiology evaluation and recommendations. We will consult the palliative care nurse consultation for advanced directives and transition of care for more comfort care measures. 5. Benign prostatic hypertrophy. 6. Status post hyperkalemia, treated. 7. Acute renal failure, likely prerenal in nature. Dr. Deng on consult. 8. Type 2 [id number] elevation myocardial infarction, likely secondary to demand ischemia as well as history of congestive heart failure. Cardiology on consult. Appreciate recommendations. 9. Severe physical debility, requiring continued PT, OT, along with speech therapy evaluation. PLAN: Discussed in detail of the diagnosis, treatment, and followup with the patient's care team. Appreciate Cardiology, Nephrology, and Neurology evaluations. The patient to continue aspirin and statins for secondary prevention at this point of time. I have added metoprolol tartrate along with continuing enalapril for the patient for CHF and blood pressure control, thought it has to be in permissive numbers. DVT prophylaxis and GI prophylaxis. The patient would benefit from transitioning to more comfort care measures with Palliative Care consultation, likely hospice. The patient's family to be notified in regard to the same. Pognosis very poor. Job ID: [id number] MTDD
[2020-04-06] MEDS: Metoprolol Tartrate 5 MG/5 ML VIAL IVP SCH ×2 (11:51→17:50)
[2020-04-06] MEDS ORDERED: Enalaprilat Dihydrate 1.25 MG in Dextrose 5% in Water 50 ML IVPB SCH ×2 (12:00)
--- NOTE | 2020-04-06 15:26 | PDOC.EEG ---
Neurology EEG Report - Report Report: This EEG was performed using 24 channel Kensho video EEG machine with 24 disc electrodes. This was an extended 2 hours 8 minutes of inpatient video EEG recording. Digital analysis of the EEG was done for spike and seizure detection which revealed abnormalities. Background: The posterior background rhythm is not observed. Hyperventilation: Not performed. Photic Stimulation: No significant response. Sleep: No stage change is observed. EEG Diagnosis: Generalized irregular theta delta activity seen during the recording. Absence of posterior background rhythm. Clinical Interpretation: This EEG is consistent with moderate generalized nonspecific cerebral dys function. No electrographic seizures captured during the recording.
--- NOTE | 2020-04-06 16:36 | PQF ---
CLINICAL DOCUMENTATION CLARIFICATION FORM: Dear Dr. Chanda BREWER Date / Time: 04/06/20 1600 Please exercise your independent, professional judgment in responding to the clarification form. Clinical indicators are provided on the bottom of this form for your review. Please check appropriate box(es): [ * ] Cerebral edema Due to: [* ] Right CVA [ ] Compression of the brain [ ] Other diagnosis [ ] Unable to determine In addition, please specify: Present on Admission (POA): [ * ] Yes [ ] No [ ] Unable to determine For continuity of documentation, please document condition throughout progress notes and discharge summary. Thank You. To be completed by CDI/Coding staff for physician review: CLINICAL INDICATORS - SIGNS / SYMPTOMS / LABS / RESULTS AND LOCATION IN EMR Presenting with altered mental status, unknown downtime but patient has not been seen normal for the past 3 days. Final Dx: Right MCA, AMS, Elevated Troponin, Left side Hemiplegia (ED Report) 2 Noted in ED with complete weakness of the left side patient was arousable but incoherent. Patient head CT shows evidence of extensive MCA infarct with 2mm midline shift. ( H&P/[place]) 2 Right side Cerebrovascular Accident with middle cerebral artery territory stroke and 2mm midline shift. ( PN/ Otto) 04/05 RISK FACTORS / RESULTS AND LOCATION IN EMR Rt side Cerebrovascular Accident, AMS (H&P/[place]) 04/04 TREATMENTS / RESULTS AND LOCATION IN EMR Neurology consult (Valerie) 04/05 Neuro checks every 4 hours ( Valerie) 04/05 Thank you! CDS Signature: Sydni Currie RN Phone #: [phone] Date: 04/06/2020 This is a permanent part of the Medical Record [facility]
--- NOTE | 2020-04-06 18:03 | PRG ---
DATE OF SERVICE: 04/06/2020 SUBJECTIVE: The patient is noted with the following vital signs. OBJECTIVE: VITAL SIGNS: Afebrile. Temperature 98.2, pulse 83, respiratory rate of 18, O2 saturation of 92%, blood pressure of 139/67. HEENT: Unremarkable. CARDIOVASCULAR SYSTEM: First and second heart sounds were heard. RESPIRATORY SYSTEM: Clear to auscultation. DIGESTIVE SYSTEM: Revealed a benign abdomen. EXTREMITIES: No peripheral edema. SKIN: No new gross rash. LYMPHATICS: No peripheral lymphadenopathy. IMPRESSION: Acute kidney injury, this is resolved. PLAN: Continue current renal supportive measures. Job ID: [id number]
--- NOTE | 2020-04-06 18:38 | CON ---
DATE OF CONSULTATION: HISTORY OF PRESENT ILLNESS: This is an unfortunate 84-year-old gentleman, who was living independently, however, was found down by a neighbor and subsequently admitted with a sizable right hemispheric stroke with swelling, left hemiparesis, and aphasia. No family members were available at the time of my visit. His workup has been fairly extensive including CT angiography of the cervical and intracranial vessels, MRI of the brain, and a cardiac echo. Cardiac echo shows an ejection fraction of 15%. CTA reviewed and shows a significant stenosis in the right cervical internal carotid artery at the bifurcation, a typical location for disease; however, somewhat atypical in the distal internal carotid artery that enters the bony skull, there is another high-grade lesion with some calcification. He also has calcification of the intracranial vessels as well. MRI confirmed the right middle cerebral artery distribution stroke, which was described as large, and no mass-effect was seen at that time. PHYSICAL EXAMINATION: GENERAL: The patient is somnolent and does not really respond to verbal stimuli. LUNGS: Have bilateral rhonchi. CARDIAC: His heart tones are distant. No murmurs. I am unable to detect a carotid bruit. However, he does have a beauchamp and is unable to hold his breath during this exam. ABDOMEN: Scaphoid, soft, and nontender. EXTREMITIES: He has palpable femoral pulses with no distal pulses. No edema. He withdraws his left leg to stimulation, but does not move his left arm. As mentioned, he is somnolent and nonverbal. At this time, no intervention is indicated for a rather large right middle cerebral infarction with significant carotid disease. I am now being told that the family is considering hospice care, which would make future intervention unlikely. Job ID: [id number]
[2020-04-06] MEDS: Atorvastatin Calcium 40 MG TAB PO SCH (20:09)
--- NOTE | 2020-04-06 22:12 | CON ---
DATE OF CONSULTATION: 04/06/2020 REQUESTING PHYSICIAN: Hospitalist Service. REASON FOR CONSULTATION: Gross hematuria and urinary retention. HISTORY OF PRESENT ILLNESS: Mr. Long is an 84-year-old male, who presented with acute onset of altered mental status and left-sided weakness. He had a very large MCA infarct noted on CT. Since that time, the patient has been incoherent and is minimally responsive. The patient was noted to be in urinary retention. A Aceves was placed and approximately 900 mL of jayme urine drained. There was some gross hematuria with some clot, and Urology has been consulted for further evaluation of this. The majority of the history is obtained from nursing staff as well as from review of the medical record, the patient is not able to provide any history. REVIEW OF SYSTEMS: Unable to obtain secondary to the patient's condition. PAST MEDICAL HISTORY: 1. Hyperlipidemia. 2. Hypertension. 3. Peripheral vascular disease. PAST SURGICAL HISTORY: Unknown. FAMILY HISTORY: Noncontributory. SOCIAL HISTORY: Lives at home. Former alcohol abuse, does not currently drink. PHYSICAL EXAMINATION: VITAL SIGNS: Afebrile. Blood pressure 133/83, pulse 86, respirations 18, oxygen saturation 97% on room air. GENERAL: He is awake, minimally responsive, in no apparent distress. CARDIOVASCULAR: Regular rhythm. PULMONARY: Breathing unlabored. ABDOMEN: Soft, nontender/nondistended. No masses or organomegaly. No suprapubic tenderness to palpation. No CVA tenderness. GENITOURINARY: Normal penis without concerning lesions. Scrotum normal. Aceves catheter in place draining jayme urine with some old-appearing blood clot. EXTREMITIES: Warm and well perfused. No edema. LABORATORY DATA: White blood cell count 8.5, hemoglobin 12.4, hematocrit , platelets 125. RADIOLOGY DATA: As stated above. ASSESSMENT: An 84-year-old male with urinary retention and gross hematuria, recent large CVA. PLAN: The etiology of the patient's gross hematuria is likely secondary to Aceves trauma. The patient was not systemically anticoagulated at the time of catheter placement. There has not been any imaging of his kidneys or bladder. His past urologic history is unclear. It has been reported to me that the family is considering hospice. I mainly irrigated his catheter at the bedside and there was no clot present and his Aceves has been draining well. Recommend to continue Aceves catheter drainage. No indication for further evaluation of his gross hematuria at this time. Job ID: [id number]
[2020-04-07] MEDS: Dextrose 5 % And 0.9 % NaCl 1,000 ML IV SCH ×2 (01:27→12:58)
[2020-04-07] MEDS: Metoprolol Tartrate 5 MG/5 ML VIAL IVP SCH ×2 (01:28→11:03)
[2020-04-07] MEDS: Enoxaparin Sodium 30 MG/0.3 ML SYRINGE SC SCH (10:33)
[2020-04-07] MEDS: Famotidine/PF 20 mg/2ml Vial SLOW IVP SCH (10:33)
[2020-04-07] MEDS: Aspirin 300 MG Suppository PR SCH (10:33)
--- NOTE | 2020-04-07 11:51 | PRG ---
DATE OF SERVICE: 04/07/2020 TIME OF SERVICE: 10 a.m. CONSULTATIONS ON THE CASE: 1. Vibha Padilla MD, Neurology. 2. Dr. Victor Manuel Farfan, Cardiology. 3. Dr. Deng, Nephrology. 4. Dr. Jorge Chavarria, Urology. SUBJECTIVE: The patient seen and evaluated at bedside. The patient is noncommunicative secondary to his medical condition with massive MCA territory stroke with 2-mm midline shift. OBJECTIVE: VITAL SIGNS: Have a temperature 98.6 degrees Fahrenheit, heart rate of 49 per minute, respiratory rate of 18 per minute, saturation of 95% on room air. Has a blood pressure of 153/62 mmHg. Has an airway, which is clear. HEENT: Atraumatic, normocephalic. NECK: Supple. No bruit. No lymphadenopathy. No thyromegaly. CVS: S1 and S2. Paroxysmal bradycardia noted. CHEST: Bilateral air entry present. No rhonchi. No wheezes. ABDOMEN: Soft, nontender. Bowel sounds are present. EXTREMITIES: No cyanosis. Nonicteric. No pallor. No edema. NEUROLOGIC: Hemiplegic with speech deficits and the patient is noncommunicative. PSYCHIATRIC: Abnormal cognition. MEDICATIONS: 1. Cefazolin 1 g every 8 hours prophylactic antibiotic. 2. Enalaprilat 1.25 mg every 6 hours. 3. Aspirin 300 mg daily. 4. Atorvastatin 40 mg daily. 5. Lovenox for DVT prophylaxis. 6. Metoprolol 5 mg IV piggyback q.8 hours. ASSESSMENT: 1. Acute cerebrovascular accident with middle cerebral artery territory stroke and 2-mm midline shift. Neurology as well as Neurosurgery on consult. Appreciate recommendations. 2. Benign essential hypertension. Optimized with Enalaprilat and metoprolol tartrate. 3. Carotid artery stenosis. [facility] has been consulted. 4. Severe systolic congestive heart failure, ejection fraction of 15% to 20%. Appreciate Cardiology recommendations. At this point of time, we have consulted Palliative Care Nurse Team for transitioning the patient to hospice once reviewed with the patient's family. 5. Benign prostatic hypertrophy. 6. History of hyperkalemia. 7. Acute renal failure, prerenal in nature, optimized. 8. Type 2 non-ST elevation myocardial infarction likely secondary to demand ischemia. Appreciate Cardiology recommendations. 9. Severe physical debility. PLAN: Discussed in detail of the diagnosis, treatment, and followup with the patient's care team. Appreciate consultation, evaluation, and recommendations. Currently awaiting family's decision in regard to palliative care and hospice care transition. Prognosis for the patient is poor. Continue support care and medications as recommended. Discharge planning will depend on further hospital course. Job ID: [id number]
[2020-04-07] MEDS ORDERED: Enalaprilat Dihydrate 1.25 MG/ML VIAL SLOW IVP SCH (12:00)
[2020-04-07] MEDS ORDERED: ceFAZolin 1 GM/D5W 1 GM in Premix Bag 1 BAG IVPB SCH (12:00)
--- NOTE | 2020-04-07 14:06 | PDOC.PALCO ---
Palliative Care Consult - Consult Details Requesting Physician: Dr Menjivar Reason for Consult: goals of care, assistance with communication prognosis/disease, coping issues Family Members Present: none - Pertinent HPI Palliative care consult for 84-year-old male. He was admitted on April 04, 2020 from emergency room. Neighbors noted they had not seen him for several days and called EMS who found him slumped to the side with complete hemiplegia to the left side of the body. Head CT showed extensive right middle cerebral artery infarct with 2 mm midline shift. He had prior history of peripheral vascular disease. Daughter was not aware of any cardiac history. However, his echocardiogram showed an ejection fraction of 15 to 20%. His BNP was 2134. At bedside visit, he is presenting with paradoxical bradycardia with heart rates va rying from the 40s to the 50s and BP 152/62. Pupils are equal, pinpoint and nonreactive. He does weakly move all extremities but not to command-right side stronger than left side. His breathing is spontaneous and unlabored with coarse rhonchi. Family members have been requested to come to the hospital to make decisions regarding plan of care. Hospice is strongly recommended. Family members state that they will be at the hospital around 1:00. Addendum: Per palliative care RN, family members, daughter and son, visited patient and agree to hospice. They are not able to care for him at home and request inpatient hospice. Case management has been consulted to assist. - Pertinent PMH Daughter states no significant medical history. Past medical records show h istory of hypertension, PVD, CHF and dyslipidemia - Social History Smoking Status: Smoker, status unknown Alcohol Use: other (Unknown) Drug Use History: other (Unknown) Living Situation: independent - Medications MAR Reviewed: Yes - Allergies Allergies/Adverse Reactions: Allergies Allergy/AdvReac Type Severity Reaction Status Date / Time No Allergy Information Allergy Verified 04/05/20 01:53 Available - ROS Non Response: due to mental status - Objective Vital Signs: Vital Signs - Most Recent Temp Pulse Resp BP Pulse Ox 98.1 F 68 20 161/68 H 97 04/07/20 11:54 04/07/20 11:54 04/07/20 11:54 04/07/20 11:54 04/07/20 11:54 - Advance Directives Specific Directives: DNAR - Physical Exam Constitutional: NAD, ill appearing HEENT: sclera anicteric Deviation from normal: Pupils pinpoint and equal Respiratory: unlabored breathing Deviation from normal: Coarse rhonchi Cardiovascular: no rub, no significant murmur, RRR Gastrointestinal: no distention, positive bowel sounds Genitourinary: che catheter Deviation from normal: Urine is brown-colored Musculoskeletal: no edema Neurology: hemiplegia, non-focal Skin: cap refill <2 seconds, no lesions, normal turgor Deviation from normal: Unresponsive, nonverbal, does not obey commands - Problem List (1) Encounter for palliative care Code(s): Z51.5 - ENCOUNTER FOR PALLIATIVE CARE Current Visit: Yes Status: Acute (2) Heart failure with reduced ejection fraction Code(s): I50.20 - UNSPECIFIED SYSTOLIC (CONGESTIVE) HEART FAILURE Current Visit: Yes Status: Acute (3) Acute CVA (cerebrovascular accident) Code(s): I63.9 - CEREBRAL INFARCTION, UNSPECIFIED Current Visit: Yes Status: Acute - Plan/Recommendations Plan: Introduced palliative care team to patient's family to establish goals of care. Family members to come to hospital this afternoon to discuss. Family would like to pursue inpatient hospice as they are unable to assist with his care in their homes or at his house 90 minutes spent on this encounter with >50% of the time in counseling and coordination of care. Thank you for this very appropriate consult.
[2020-04-07 15:10] VITALS: BP 157/73; TEMP 98.2
--- NOTE | 2020-04-07 15:52 | PRG ---
DATE OF SERVICE: 04/07/2020 SUBJECTIVE: The patient noted with the following vital signs. OBJECTIVE: VITAL SIGNS: Afebrile, temperature of 98.2, pulse 63, respiratory rate of 20, O2 saturation 93%, blood pressure 157/73. HEENT: Unremarkable. CARDIOVASCULAR SYSTEM: First and second heart sounds were heard. RESPIRATORY SYSTEM: Clear to auscultation. DIGESTIVE SYSTEM: Revealed a benign abdomen. EXTREMITIES: No peripheral edema. SKIN: No new gross rash. LYMPHATICS: No peripheral lymphadenopathy. IMPRESSION: 1. Acute kidney injury, which seems to have resolved. 2. Cerebrovascular accident. PLAN: Continue renal supportive measures . Job ID: [id number]
--- NOTE | 2020-04-07 17:41 | DIS ---
DATE OF ADMISSION: 04/04/2020 DATE OF DISCHARGE: 04/07/2020 DISCHARGING PHYSICIAN: Dr. Jimenez Menjivar CONSULTATIONS ON THE CASE: 1. Dr. Vibha Padilla, Neurology. 2. Dr. Holland Farfan, Cardiology. 3. Dr. Deng, Nephrology. 4. Dr. Jorge Chavarria, Urology. 5. Neurosurgical Team. DISCHARGE DIAGNOSES: 1. Acute cerebrovascular accident with middle cerebral artery territory stroke and 2-mm midline shift. 2. Benign essential hypertension. 3. Carotid artery stenosis. 4. Severe systolic congestive heart failure with ejection fraction of 15% to 20%. 5. Benign prostatic hypertrophy. 6. Hyperkalemia. 7. Acute renal failure. 8. Type 2 Non-ST segment elevation myocardial infarction. HOSPITAL COURSE: This is an 84-year-old male gentleman, who was admitted to the Hospitalist Services with the above diagnoses, was eventually found out to be noncommunicative and significantly sick with severe cardiomyopathy and acute stroke involving midline shift. Extensive discussion in regard to the patient's prognosis was made with consultants on the case and it was determined that the patient's long-term prognosis is very poor. At this point of time, we consulted Palliative Care Team, who reviewed and evaluated the patient's case with the family members, who advised advance directives as DNR and DNI. The patient eventually was referred to Hospice inpatient consultants, who accepted and advised transitioning to Hospice inpatient care. At this point of time, the patient was discharged from the Hospitalist Services. Prognosis being very poor. DISPOSITION: Discharged to [facility]. PHYSICAL EXAMINATION: CVS: S1 and S2. CHEST: Bilateral air entry present. ABDOMEN: Soft. EXTREMITIES: No cyanosis. DIET: Regular diet. MEDICATIONS: Per medication reconciliation form have been reviewed and reconciled. All medications prior to hospice have been discontinued per Hospice Team. ACCEPTING HOSPICE PHYSICIAN: Dr. Espinal. ACTIVITY: Bedbound with aspiration, decubitus, and fall precautions. DISPOSITION: Discharge to inpatient hospice. DISCHARGE PLAN: The patient's family was extensively educated in regard to hospice care inpatient admission and the long-term prognosis. The whole discharge process including discharge coordination took me more than 35 minutes. Job ID: [id number]
[2020-04-08 13:06] LABS: ANA Symphony (Qualitative) Negative (Negative); ANA Symphony (Quantitative) 0.3 Ratio (< 0.7 Negative); CCP IgG Antibody 1.9 EliAU/mL (<7 Negative); EliA RAS New Method **** NEW METHOD ****; Rheumatoid Factor IgM Antibody 3.5 IU/mL (<3.5 Negative); dsDNA IgG Antibody 1.6 IU/mL (<10 Negative)
== END 2020-04-07 15:59 | disposition hospice, inpatient (51) | DRG 64 ==
LOC: ERS 19:52 → 2SE 21:59
PROVIDERS: ADMIT Internal Medicine; ATTEND Student in an Organized Health Care Education/Training Program
DX: I63.9 Cerebral infarction, unspecified (principal); I21.A1 Myocardial infarction type 2; G93.6 Cerebral edema; Z51.5 Encounter for palliative care; Z66 Do not resuscitate; N17.9 Acute kidney failure, unspecified; I50.20 Unspecified systolic (congestive) heart failure; I42.9 Cardiomyopathy, unspecified; G81.94 Hemiplegia, unspecified affecting left nondominant side; E87.5 Hyperkalemia; E86.0 Dehydration; I44.7 Left bundle-branch block, unspecified; E78.5 Hyperlipidemia, unspecified; I73.9 Peripheral vascular disease, unspecified; I65.29 Occlusion and stenosis of unspecified carotid artery; I11.0 Hypertensive heart disease with heart failure; R53.81 Other malaise; R31.0 Gross hematuria; R33.8 Other retention of urine; N40.1 Benign prostatic hyperplasia with lower urinary tract symptoms; Z20.822 Contact with and (suspected) exposure to COVID-19
CPT/HCPCS: 36415; 36416; 51701; 70450; 70496; 70498; 70551; 71045; 80048; 80053; 80061; 81003; 81015; 82550; 82553; 83090; 83520; 83690; 83735; 84484; 85007; 85025; 85027; 85610; 85730; 86038; 86200; 86225; 87040; 87086; 87149; 87635; 93005; 95712; 95819; 95957; 96374; J0461; J0690; J1650; J1815; J2001; J3490; J7042; Q9967; S0028; U0003; U0005

== ENCOUNTER 2020-04-07 16:06 | Inpatient (IN) | payer OTHER ==
[2020-04-07] MEDS ORDERED: Morphine 2 MG/ML VIAL SLOW IVP PRN (18:12)
[2020-04-07] MEDS ORDERED: Lorazepam 2 MG/ML VIAL SLOW IVP SCH (18:15)
[2020-04-07] MEDS ORDERED: Morphine 4 MG/ML VIAL SLOW IVP SCH (18:15)
[2020-04-07] MEDS ORDERED: Scopolamine 1.5 mg/72 hour Patch TOP SCH (18:30)
== END 2020-04-07 19:35 | disposition expired | DRG 951 ==
LOC: 2SE 16:06
PROVIDERS: ADMIT Family Medicine; ATTEND Family Medicine
DX: Z51.5 Encounter for palliative care (principal); I63.9 Cerebral infarction, unspecified; I21.A1 Myocardial infarction type 2; G93.6 Cerebral edema; N17.9 Acute kidney failure, unspecified; G81.94 Hemiplegia, unspecified affecting left nondominant side; I50.20 Unspecified systolic (congestive) heart failure; I73.9 Peripheral vascular disease, unspecified; E78.5 Hyperlipidemia, unspecified; I11.0 Hypertensive heart disease with heart failure; I44.7 Left bundle-branch block, unspecified; N40.0 Benign prostatic hyperplasia without lower urinary tract symptoms
CPT/HCPCS: J2270